=== PATIENT | female | born 1950 | race Caucasian/White ===

== ENCOUNTER 2016-12-01 07:36 | Day surgery (SDC) | payer MEDICARE, OTHER ==
[~2016-12-01] VITALS: Ht 167.6 cm; Wt 89.6 kg
[2016-12-01] MEDS ORDERED: LACTATED RINGERS 1,000 ML IV SCH (08:14)
[2016-12-01 08:42] VITALS: BP 154/86
[2016-12-01] MEDS ORDERED: SERT100T5 PO (08:55)
[2016-12-01] MEDS ORDERED: LEVO150T5 PO (08:55)
[2016-12-01] MEDS ORDERED: ATOR20TA9 PO (08:55)
[2016-12-01] MEDS ORDERED: EMPA25TA PO (08:55)
[2016-12-01] MEDS ORDERED: OMEP-110 PO (08:55)
[2016-12-01] MEDS ORDERED: METF500T4 PO (08:55)
[2016-12-01] MEDS ORDERED: LOSA50TA6 PO (08:55)
[2016-12-01] MEDS ORDERED: INSU100V13 SQ-INSULIN (08:55)
[2016-12-01] MEDS ORDERED: FENTANYL PF 100 MCG/2ML ONE ×3 (09:04→11:35)
[2016-12-01] MEDS ORDERED: HYDROmorphone 1 MG/ML, 1ML ONE ×2 (09:04→11:18)
[2016-12-01] MEDS ORDERED: MIDAZOLAM 1 MG/ML, 2ML ONE (09:04)
[2016-12-01] MEDS ORDERED: ONDANSETRON 2MG/ML, 2ML ONE (09:11)
[2016-12-01] MEDS ORDERED: SUCCINYLCHOLINE 20 MG/ML, 10ML ONE (09:11)
[2016-12-01] MEDS ORDERED: PROPOFOL 10 MG/ML, 20ML ONE (09:11)
[2016-12-01] MEDS ORDERED: DEXAMETHASONE 4 MG/ML, 1ML ONE (09:11)
[2016-12-01] MEDS ORDERED: OXYcodone 5 MG/5 ML ORAL.SOL UDC PO PRN (10:00)
[2016-12-01] MEDS ORDERED: ACETAMINOPHEN 325 MG TABLET PO PRN (10:00)
[2016-12-01] MEDS ORDERED: hydrALAzine 20 MG/ML, 1ML ONE (10:35)
[2016-12-01] MEDS ORDERED: OXYcodone 5 MG/5 ML ORAL.SOL UDC ONE (10:38)
[2016-12-01] MEDS ORDERED: ACETAMINOPHEN 650 MG/20.3 ML UDC ONE (10:38)
[2016-12-01] MEDS: FENTANYL PF 100 MCG/2ML IV PRN ×3 (10:42→11:35)
[2016-12-01] MEDS ORDERED: hydrALAzine 20 MG/ML, 1ML IV PRN (11:00)
[2016-12-01] MEDS: HYDROmorphone 1 MG/ML, 1ML IV PRN ×2 (11:20→11:28)
== END 2016-12-01 15:46 ==
LOC: OUT 07:36
PROVIDERS: ATTEND Surgery
DX: D34 Benign neoplasm of thyroid gland (principal); E11.9 Type 2 diabetes mellitus without complications; E78.00 Pure hypercholesterolemia, unspecified; E03.9 Hypothyroidism, unspecified; Z98.890 Other specified postprocedural states; Z81.8 Family history of other mental and behavioral disorders; Z83.3 Family history of diabetes mellitus; Z82.3 Family history of stroke; Z88.1 Allergy status to other antibiotic agents
CPT/HCPCS: 60220; 82962; 88307; 93005; C1760; J0330; J0360; J1100; J1170; J2250; J2405; J2704; J3010; J7120

== ENCOUNTER → 2016-12-24 | Outpatient (CLI) | payer MEDICARE ==
[~2016-12-24] MED LIST: ATOR20TA9 PO; EMPA25TA PO; INSU100V13 SQ-INSULIN; LEVO150T5 PO; LOSA50TA6 PO; METF500T4 PO; OMEP-110 PO; OMNIPAQUE 350 MG/ML, 100ML BOTTLE ONE; SERT100T5 PO
== END | disposition home or self-care (01) ==
LOC: CFH 12:11
PROVIDERS: ATTEND Registered Nurse
DX: R10.84 Generalized abdominal pain (principal)
CPT/HCPCS: 74177; 82565; Q9967

== ENCOUNTER → 2018-02-12 | Outpatient (CLI) | payer MEDICARE ==
[~2018-02-12] MED LIST changes: +ATOR20TA37 PO; -ATOR20TA9 PO; -LOSA50TA6 PO; +LOSA50TA7 PO; +METF500T17 PO; -METF500T4 PO; -OMNIPAQUE 350 MG/ML, 100ML BOTTLE ONE
== END | disposition home or self-care (01) ==
LOC: CFH 13:36
PROVIDERS: ATTEND Family Medicine
DX: N63.22 Unspecified lump in the left breast, upper inner quadrant (principal)
CPT/HCPCS: 77065

== ENCOUNTER → 2018-09-30 | Outpatient (CLI) | payer MEDICARE ==
[~2018-09-30] MED LIST changes: +LOSA50TA14 PO; -LOSA50TA7 PO; +SERT100T32 PO; -SERT100T5 PO
== END | disposition home or self-care (01) ==
LOC: CFH 12:31
PROVIDERS: ATTEND Family Medicine
DX: Z13.6 Encounter for screening for cardiovascular disorders (principal); I07.1 Rheumatic tricuspid insufficiency; I10 Essential (primary) hypertension
CPT/HCPCS: 93306

== ENCOUNTER 2020-06-14 10:03 | Outpatient (CLI) | payer MEDICARE | END 2020-06-14 23:59 | disposition home or self-care (01) | LOC: CFH 10:03 | PROVIDERS: ATTEND Family Medicine | DX: N95.8 Other specified menopausal and perimenopausal disorders (principal); N63.20 Unspecified lump in the left breast, unspecified quadrant | CPT/HCPCS: 77062; 77080; 77066; G0279 ==